=== PATIENT | male | born 1955 | race Caucasian/White ===

== ENCOUNTER 2023-04-21 19:15 | Inpatient (IN) | payer MEDICARE, MEDICAID ==
[~2023-04-21] VITALS: Ht 177.8 cm; Wt 92.7 kg
[2023-04-21] MEDS ORDERED: LIDOCAINE 2%/EPI 1:200,000/PF 10 ML VIAL SQ ONE (21:15)
[2023-04-21] MEDS ORDERED: LIDOCAINE 2%/EPI 1:200,000/PF 10 ML VIAL ONE (21:15)
[2023-04-21] MEDS ORDERED: LIDOCAINE 2%/EPI 1:200,000/PF 10 ML VIAL PERC ONE (21:15)
[2023-04-21] MEDS ORDERED: DOCU-352 PO (21:42)
[2023-04-21] MEDS ORDERED: ASPI-1450 PO (21:42)
[2023-04-21] MEDS ORDERED: GABA-1201 PO (21:42)
[2023-04-21] MEDS ORDERED: TRAZ-252 PO (21:42)
[2023-04-21] MEDS ORDERED: HYDR25TA2 PO (21:42)
[2023-04-21] MEDS ORDERED: HYDR25TA84 PO (21:42)
[2023-04-21] MEDS ORDERED: SUVO10TA PO (21:42)
[2023-04-21] MEDS ORDERED: DULO-114 PO (21:42)
[2023-04-21] MEDS ORDERED: CYCL-448 PO (21:42)
[2023-04-21] MEDS ORDERED: CLON1PAT12 TD (21:42)
[2023-04-21] MEDS ORDERED: AMLO-258 PO (21:42)
[2023-04-21] MEDS ORDERED: METO50 PO (21:42)
[2023-04-21] MEDS ORDERED: ACET-2080 PO (21:42)
[2023-04-21] MEDS ORDERED: PRAZ5 PO (21:42)
[2023-04-21] MEDS ORDERED: ATOR40TA28 PO (21:42)
[2023-04-21] MEDS ORDERED: FAMO20 PO (21:42)
[2023-04-21] MEDS ORDERED: LISI-892 PO (21:42)
[2023-04-21] MEDS ORDERED: PERTUSS(ACELL),DIPH,TET VAC/PF 0.5 ML SYRINGE IM. ONE (21:45)
[2023-04-21] MEDS ORDERED: BACITRACIN 28 GM OINTMENT TP ONE (21:45)
[2023-04-21 21:56] LABS: BASOPHILS % (AUTO) 0.4 % (0.0-2.0); EOSINOPHILS % (AUTO) 1.7 % (1.0-6.0); HEMATOCRIT 44.3 % (41-53); HEMOGLOBIN 14.6 g/dL (13.5-17.5); LYMPHOCYTES # (AUTO) 1.7 K/uL (1.0-4.8); MEAN CORPUSCULAR HEMOGLOBIN 28.5 pg (26.0-34.0); MEAN CORPUSCULAR VOLUME 86 fL (80-100); MONOCYTES # (AUTO) 1.1 K/uL (0.1-1.0); MONOCYTES % (AUTO) 8.1 % (2.0-9.0); NEUTROPHILS # (AUTO) 10.9 K/uL (1.8-7.7); NEUTROPHILS % (AUTO) 77.8 % (40.0-70.0); PLATELET COUNT (AUTO) 228 K/uL (150-450); RED BLOOD CELL COUNT(AUTO) 5.12 MIL/uL (4.50-5.90); RED CELL DISTRIBUTION WIDTH 13.6 % (11.5-14.5)
[2023-04-21 21:57] LABS: ANION GAP 12 mmol/L (8-16); CALCIUM, TOTAL 8.9 mg/dL (8.8-10.5); CARBON DIOXIDE 25 mmol/L (22-29); CHLORIDE 94 mmol/L (98-107); CREATININE 0.87 mg/dL (0.60-1.30); GLOMERULAR FILTR. RATE CALC > 60 mL/min (>60); GLUCOSE,RANDOM 78 mg/dL (70-110); POTASSIUM 3.6 mmol/L (3.5-5.1); SODIUM SERUM 131 mmol/L (136-145)
[2023-04-21 22:03] LABS: ALANINE AMINOTRANSFERASE 25 U/L (12-78); ALBUMIN 3.8 g/dL (3.4-5.0); ALKALINE PHOSPHATASE 76 U/L (46-116); ASPARTATE AMINOTRANSFERASE 28 U/L (15-37); BILIRUBIN,TOTAL 0.8 mg/dL (0.1-1.0); TOTAL PROTEIN, SERUM 6.5 g/dL (6.4-8.2)
[2023-04-22 00:22] LABS: APPEARANCE,URINE CLEAR (CLEAR); BILIRUBIN,URINE NEGATIVE (NEGATIVE); GLUCOSE, URINE (UA) NEGATIVE (NEGATIVE); LEUKOCYTE ESTERASE ,URINE NEGATIVE (NEGATIVE); NITRATE,URINE NEGATIVE (NEGATIVE); OCCULT BLOOD,URINE NEGATIVE (NEGATIVE); PROTEIN,URINE NEGATIVE (NEGATIVE); UROBILINOGEN,URINE <=1.0 mg/dL (<=1.0)
[2023-04-22 00:27] LABS: AMPHET/METH SCREEN,URINE NEGATIVE (NEGATIVE); BARBITURATE SCREEN, URINE NEGATIVE (NEGATIVE); BENZODIAZEPINES SCREEN,URINE NEGATIVE (NEGATIVE); CANNABINOID SCREEN,URINE POSITIVE (NEGATIVE); COCAINE SCREEN,URINE NEGATIVE (NEGATIVE); METHADONE SCREEN, URINE NEGATIVE (NEGATIVE); OPIATE SCREEN,URINE POSITIVE (NEGATIVE); PHENCYCLIDINE SCREEN,URINE NEGATIVE (NEGATIVE)
[2023-04-22 00:41] LABS: COVID AG,FIA SOURCE NASAL SWAB
[2023-04-22 00:57] LABS: BACTERIA,URINE None Seen /HPF (None Seen); RBC,URINE None Seen /HPF (0-2); SQUAMOUS EPITHELIAL CELL,UR Rare /LPF (None Seen); WBC,URINE None Seen /HPF (0-5)
[2023-04-22] MEDS: ZOLPIDEM TARTRATE 10 MG TABLET PO PRN ×2 (01:09→18:35)
[2023-04-22] MEDS: DOCUSATE SODIUM 250 MG CAPSULE PO SCH (09:45)
[2023-04-22] MEDS: AmLODIPine BESYLATE 10 MG TABLET PO SCH (09:49)
[2023-04-22] MEDS: ASPIRIN 81 MG CHEWABLE TABLET PO SCH (09:49)
[2023-04-22] MEDS: METOPROLOL TARTRATE 50 MG TABLET PO SCH (09:50)
[2023-04-22] MEDS: HydrALAZINE HCL 25 MG TABLET PO SCH ×2 (09:50→20:59)
[2023-04-22] MEDS: LISINOPRIL 5 MG TABLET PO SCH (10:27)
[2023-04-22] MEDS: HYDROCHLOROTHIAZIDE 25 MG TABLET PO SCH (10:27)
[2023-04-22] MEDS ORDERED: TAMS-13 PO (11:39)
[2023-04-22] MEDS ORDERED: HYDR25TA82 PO (11:39)
[2023-04-22] MEDS ORDERED: METO-391 PO (11:39)
[2023-04-22] MEDS: LORazepam 2 MG TABLET PO PRN (12:29)
[2023-04-22] MEDS: HALOPERIDOL 5 MG TABLET PO PRN ×2 (12:29→18:35)
[2023-04-22] MEDS: GABAPENTIN 400 MG CAPSULE PO SCH ×2 (17:00→20:59)
[2023-04-22 19:06] LABS: GLUCOMETER DEV NAME(LOC) ER.6
[2023-04-22] MEDS: ATORVASTATIN CALCIUM 40 MG TABLET PO SCH (20:59)
[2023-04-22] MEDS: PRAZOSIN HCL 5 MG CAPSULE PO SCH (20:59)
[2023-04-22] MEDS: FAMOTIDINE 20 MG TABLET PO SCH (20:59)
[2023-04-22] MEDS ORDERED: MAGNESIUM HYDROXIDE SUSPENSION 30 ML UDCUP PO PRN (23:30)
[2023-04-22] MEDS ORDERED: ONDANSETRON HCL 4 MG TABLET PO PRN (23:30)
[2023-04-22] MEDS ORDERED: ACETAMINOPHEN 325 MG TABLET PO PRN (23:30)
[2023-04-22] MEDS ORDERED: OMEPRAZOLE 20 MG CAPSULE PO PRN (23:30)
[2023-04-22] MEDS ORDERED: ALBUTEROL SULFATE HFA 90 MCG/PUFF 8 GM INHALER IH PRN (23:30)
[2023-04-22] MEDS ORDERED: LOPERAMIDE HCL 2 MG CAPSULE PO PRN (23:30)
[2023-04-22] MEDS ORDERED: BENZOCAINE/MENTHOL LOZENGE PO PRN (23:30)
[2023-04-22] MEDS ORDERED: PETROLATUM,WHITE 28 GM JELLY TP PRN (23:30)
[2023-04-22] MEDS ORDERED: DOCUSATE SODIUM 100 MG CAPSULE PO PRN (23:30)
[2023-04-23 01:00] VITALS: BP 131/71; PULSE 64; RESP 18; TEMP 97.8; O2SAT 98
[2023-04-23] MEDS ORDERED: NICOTINE 21 MG/24 HOUR PATCH TD PRN (06:45)
[2023-04-23] MEDS: BACITRACIN 28 GM OINTMENT TP PRN (09:15)
[2023-04-23] MEDS: LISINOPRIL 5 MG TABLET PO SCH (09:15)
[2023-04-23] MEDS: HYDROCHLOROTHIAZIDE 25 MG TABLET PO SCH (09:16)
[2023-04-23] MEDS: METOPROLOL TARTRATE 50 MG TABLET PO SCH (09:16)
[2023-04-23] MEDS: HydrALAZINE HCL 25 MG TABLET PO SCH ×2 (09:16→17:34)
[2023-04-23] MEDS: DOCUSATE SODIUM 250 MG CAPSULE PO SCH (09:18)
[2023-04-23] MEDS: ASPIRIN 81 MG CHEWABLE TABLET PO SCH (09:18)
[2023-04-23] MEDS: AmLODIPine BESYLATE 10 MG TABLET PO SCH (09:18)
[2023-04-23] MEDS: GABAPENTIN 400 MG CAPSULE PO SCH ×3 (09:19→17:34)
[2023-04-23 09:26] VITALS: BP 123/56; PULSE 65; RESP 18; TEMP 97.5; O2SAT 98
[2023-04-23 16:50] VITALS: BP 123/56; PULSE 85; RESP 18; TEMP 97.5; O2SAT 98
[2023-04-23] MEDS: FAMOTIDINE 20 MG TABLET PO SCH (21:24)
[2023-04-23] MEDS: ATORVASTATIN CALCIUM 40 MG TABLET PO SCH (21:24)
[2023-04-23] MEDS: PRAZOSIN HCL 5 MG CAPSULE PO SCH (21:24)
[2023-04-23] MEDS: ZOLPIDEM TARTRATE 10 MG TABLET PO PRN (21:24)
[2023-04-24 05:31] VITALS: BP 139/63; PULSE 66; RESP 20; TEMP 96.4
[2023-04-24 08:30] VITALS: BP 163/83; PULSE 93; RESP 18; TEMP 97.5; O2SAT 98
[2023-04-24] MEDS: AmLODIPine BESYLATE 10 MG TABLET PO SCH (08:59)
[2023-04-24] MEDS: HydrALAZINE HCL 25 MG TABLET PO SCH ×2 (08:59→18:07)
[2023-04-24] MEDS: METOPROLOL TARTRATE 50 MG TABLET PO SCH (08:59)
[2023-04-24] MEDS: LISINOPRIL 5 MG TABLET PO SCH (09:00)
[2023-04-24] MEDS: HYDROCHLOROTHIAZIDE 25 MG TABLET PO SCH (09:00)
[2023-04-24] MEDS: DOCUSATE SODIUM 250 MG CAPSULE PO SCH (09:00)
[2023-04-24] MEDS: ASPIRIN 81 MG CHEWABLE TABLET PO SCH (09:00)
[2023-04-24] MEDS: GABAPENTIN 400 MG CAPSULE PO SCH ×3 (09:00→18:06)
[2023-04-24] MEDS: MAG HYDROX/AL HYDROX/SIMETH ES 30 ML SUSPENSION UDCUP PO PRN (15:45)
[2023-04-24 16:00] VITALS: BP 160/65; PULSE 64; RESP 19; TEMP 98.2
[2023-04-24] MEDS: DIVALPROEX SODIUM 250 MG DR TABLET PO SCH (18:06)
[2023-04-24] MEDS: PRAZOSIN HCL 5 MG CAPSULE PO SCH (21:15)
[2023-04-24] MEDS: ATORVASTATIN CALCIUM 40 MG TABLET PO SCH (21:16)
[2023-04-24] MEDS: FAMOTIDINE 20 MG TABLET PO SCH (21:16)
[2023-04-24] MEDS: ZOLPIDEM TARTRATE 10 MG TABLET PO PRN (21:16)
[2023-04-25 02:23] VITALS: BP 133/81; PULSE 92; RESP 20; TEMP 97.1
[2023-04-25] MEDS: DOCUSATE SODIUM 250 MG CAPSULE PO SCH (08:30)
[2023-04-25] MEDS: ASPIRIN 81 MG CHEWABLE TABLET PO SCH (08:30)
[2023-04-25] MEDS: GABAPENTIN 400 MG CAPSULE PO SCH ×3 (08:30→16:31)
[2023-04-25] MEDS: HydrALAZINE HCL 25 MG TABLET PO SCH ×2 (08:31→16:32)
[2023-04-25] MEDS: AmLODIPine BESYLATE 10 MG TABLET PO SCH (08:31)
[2023-04-25] MEDS: METOPROLOL TARTRATE 50 MG TABLET PO SCH (08:32)
[2023-04-25] MEDS: LISINOPRIL 5 MG TABLET PO SCH (08:32)
[2023-04-25] MEDS: DIVALPROEX SODIUM 250 MG DR TABLET PO SCH ×2 (08:32→16:31)
[2023-04-25] MEDS: HYDROCHLOROTHIAZIDE 25 MG TABLET PO SCH (09:01)
[2023-04-25 09:29] VITALS: BP 164/71; PULSE 66; RESP 18; TEMP 97.5; O2SAT 98
[2023-04-25 16:10] VITALS: BP 165/90; PULSE 65; RESP 18; TEMP 98.4; O2SAT 99
[2023-04-25] MEDS: LORazepam 2 MG TABLET PO PRN (16:32)
[2023-04-25] MEDS: FAMOTIDINE 20 MG TABLET PO SCH (21:04)
[2023-04-25] MEDS: ATORVASTATIN CALCIUM 40 MG TABLET PO SCH (21:05)
[2023-04-25] MEDS: PRAZOSIN HCL 5 MG CAPSULE PO SCH (21:05)
[2023-04-25 22:00] VITALS: BP 155/83; PULSE 64; RESP 18; TEMP 97.5; O2SAT 96
[2023-04-25] MEDS: ZOLPIDEM TARTRATE 10 MG TABLET PO PRN (23:42)
[2023-04-26 08:52] VITALS: BP 154/78; PULSE 86; RESP 18; TEMP 97.6; O2SAT 98
[2023-04-26] MEDS: BACITRACIN 28 GM OINTMENT TP PRN (08:53)
[2023-04-26] MEDS: HydrALAZINE HCL 25 MG TABLET PO SCH ×2 (08:54→17:36)
[2023-04-26] MEDS: HYDROCHLOROTHIAZIDE 25 MG TABLET PO SCH (08:55)
[2023-04-26] MEDS: METOPROLOL TARTRATE 50 MG TABLET PO SCH (08:55)
[2023-04-26] MEDS: LISINOPRIL 5 MG TABLET PO SCH (08:55)
[2023-04-26] MEDS: DIVALPROEX SODIUM 250 MG DR TABLET PO SCH ×2 (08:55→17:36)
[2023-04-26] MEDS: DOCUSATE SODIUM 250 MG CAPSULE PO SCH (08:57)
[2023-04-26] MEDS: AmLODIPine BESYLATE 10 MG TABLET PO SCH (08:57)
[2023-04-26] MEDS: GABAPENTIN 400 MG CAPSULE PO SCH ×3 (08:58→17:36)
[2023-04-26] MEDS: ASPIRIN 81 MG CHEWABLE TABLET PO SCH (08:58)
[2023-04-26] MEDS: LORazepam 2 MG TABLET PO PRN (14:52)
[2023-04-26 20:04] VITALS: BP 132/82; PULSE 82; RESP 18; TEMP 98.1; O2SAT 98
[2023-04-26] MEDS: PRAZOSIN HCL 5 MG CAPSULE PO SCH (20:42)
[2023-04-26] MEDS: FAMOTIDINE 20 MG TABLET PO SCH (20:42)
[2023-04-26] MEDS: ATORVASTATIN CALCIUM 40 MG TABLET PO SCH (20:42)
[2023-04-26] MEDS: ZOLPIDEM TARTRATE 10 MG TABLET PO PRN (23:09)
[2023-04-27 08:06] VITALS: BP 155/76; PULSE 81; RESP 18; TEMP 97.9; O2SAT 98
[2023-04-27] MEDS: ASPIRIN 81 MG CHEWABLE TABLET PO SCH (09:32)
[2023-04-27] MEDS: DOCUSATE SODIUM 250 MG CAPSULE PO SCH (09:32)
[2023-04-27] MEDS: AmLODIPine BESYLATE 10 MG TABLET PO SCH (09:32)
[2023-04-27] MEDS: HYDROCHLOROTHIAZIDE 25 MG TABLET PO SCH (09:32)
[2023-04-27] MEDS: GABAPENTIN 400 MG CAPSULE PO SCH ×3 (09:32→17:31)
[2023-04-27] MEDS: METOPROLOL TARTRATE 50 MG TABLET PO SCH (09:33)
[2023-04-27] MEDS: LISINOPRIL 5 MG TABLET PO SCH (09:33)
[2023-04-27] MEDS: DIVALPROEX SODIUM 250 MG DR TABLET PO SCH ×2 (09:33→17:31)
[2023-04-27] MEDS: HydrALAZINE HCL 25 MG TABLET PO SCH ×2 (09:34→17:31)
[2023-04-27] MEDS: LORazepam 2 MG TABLET PO PRN (11:34)
[2023-04-27] MEDS: ATORVASTATIN CALCIUM 40 MG TABLET PO SCH (20:44)
[2023-04-27] MEDS: PRAZOSIN HCL 5 MG CAPSULE PO SCH (20:44)
[2023-04-27] MEDS: FAMOTIDINE 20 MG TABLET PO SCH (20:44)
[2023-04-27] MEDS: ZOLPIDEM TARTRATE 10 MG TABLET PO PRN (21:12)
[2023-04-27 21:30] VITALS: PULSE 62; RESP 18; TEMP 98.2; O2SAT 99
[2023-04-28] MEDS: LORazepam 2 MG TABLET PO PRN (00:12)
[2023-04-28] MEDS: DIVALPROEX SODIUM 250 MG DR TABLET PO SCH ×2 (08:48→16:35)
[2023-04-28] MEDS: DOCUSATE SODIUM 250 MG CAPSULE PO SCH (08:48)
[2023-04-28] MEDS: AmLODIPine BESYLATE 10 MG TABLET PO SCH (08:48)
[2023-04-28] MEDS: GABAPENTIN 400 MG CAPSULE PO SCH ×3 (08:48→16:35)
[2023-04-28] MEDS: HYDROCHLOROTHIAZIDE 25 MG TABLET PO SCH (08:48)
[2023-04-28] MEDS: ASPIRIN 81 MG CHEWABLE TABLET PO SCH (08:49)
[2023-04-28] MEDS: LISINOPRIL 5 MG TABLET PO SCH (08:49)
[2023-04-28] MEDS: METOPROLOL TARTRATE 50 MG TABLET PO SCH (08:50)
[2023-04-28] MEDS: HydrALAZINE HCL 25 MG TABLET PO SCH ×2 (08:51→16:35)
[2023-04-28 09:11] VITALS: BP 139/76; PULSE 71; RESP 18; TEMP 97.6; O2SAT 99
[2023-04-28 14:02] VITALS: BP 149/76; PULSE 89; RESP 18; TEMP 97.9; O2SAT 99
[2023-04-28] MEDS: IBUPROFEN 600 MG TABLET PO PRN (14:02)
[2023-04-28 16:30] VITALS: BP 205/96; PULSE 64; RESP 18; TEMP 97.9; O2SAT 97
[2023-04-28 17:30] VITALS: BP 189/89; RESP 17; O2SAT 98
[2023-04-28 18:30] VITALS: BP 201/94; RESP 18; O2SAT 99
[2023-04-28] MEDS ORDERED: CloNIDine HCL 0.1 MG TABLET PO PRN (19:00)
[2023-04-28] MEDS ORDERED: DiphenhydrAMINE HCL 50 MG/ML VIAL IM ONE (20:45)
[2023-04-28] MEDS: ATORVASTATIN CALCIUM 40 MG TABLET PO SCH (20:46)
[2023-04-28] MEDS: PRAZOSIN HCL 5 MG CAPSULE PO SCH (20:46)
[2023-04-28] MEDS: FAMOTIDINE 20 MG TABLET PO SCH (20:47)
[2023-04-28 21:13] VITALS: BP 131/78; PULSE 72; RESP 18; TEMP 97.3; O2SAT 98
[2023-04-29] MEDS: LORazepam 2 MG TABLET PO PRN (03:20)
[2023-04-29 07:14] VITALS: BP 129/66; PULSE 64; RESP 18; TEMP 97.5; O2SAT 98
[2023-04-29 08:22] VITALS: BP 162/56; PULSE 64; RESP 17; TEMP 97; O2SAT 98
[2023-04-29] MEDS: GABAPENTIN 400 MG CAPSULE PO SCH ×3 (09:12→16:56)
[2023-04-29] MEDS: AmLODIPine BESYLATE 10 MG TABLET PO SCH (09:12)
[2023-04-29] MEDS: DOCUSATE SODIUM 250 MG CAPSULE PO SCH (09:12)
[2023-04-29] MEDS: DIVALPROEX SODIUM 250 MG DR TABLET PO SCH ×2 (09:13→16:56)
[2023-04-29] MEDS: ASPIRIN 81 MG CHEWABLE TABLET PO SCH (09:13)
[2023-04-29] MEDS: LISINOPRIL 5 MG TABLET PO SCH (09:14)
[2023-04-29] MEDS: HYDROCHLOROTHIAZIDE 25 MG TABLET PO SCH (09:14)
[2023-04-29] MEDS: HydrALAZINE HCL 25 MG TABLET PO SCH ×2 (09:15→16:57)
[2023-04-29] MEDS: METOPROLOL TARTRATE 50 MG TABLET PO SCH (09:16)
[2023-04-29] MEDS: FAMOTIDINE 20 MG TABLET PO SCH (20:49)
[2023-04-29] MEDS: ATORVASTATIN CALCIUM 40 MG TABLET PO SCH (20:50)
[2023-04-29] MEDS: PRAZOSIN HCL 5 MG CAPSULE PO SCH (20:50)
[2023-04-29 20:56] VITALS: BP 148/78; PULSE 66; RESP 18; TEMP 98.7; O2SAT 99
[2023-04-29] MEDS: ZOLPIDEM TARTRATE 10 MG TABLET PO PRN (21:59)
[2023-04-30 08:23] VITALS: BP 136/80; PULSE 62; RESP 18; TEMP 97.8; O2SAT 97
[2023-04-30] MEDS: GABAPENTIN 400 MG CAPSULE PO SCH ×3 (08:31→16:48)
[2023-04-30] MEDS: AmLODIPine BESYLATE 10 MG TABLET PO SCH (08:32)
[2023-04-30] MEDS: ASPIRIN 81 MG CHEWABLE TABLET PO SCH (08:32)
[2023-04-30] MEDS: DOCUSATE SODIUM 250 MG CAPSULE PO SCH (08:33)
[2023-04-30] MEDS: HydrALAZINE HCL 25 MG TABLET PO SCH ×2 (08:44→16:49)
[2023-04-30] MEDS: LISINOPRIL 5 MG TABLET PO SCH (08:44)
[2023-04-30] MEDS: DIVALPROEX SODIUM 250 MG DR TABLET PO SCH ×2 (08:44→16:50)
[2023-04-30] MEDS: HYDROCHLOROTHIAZIDE 25 MG TABLET PO SCH (08:45)
[2023-04-30] MEDS: METOPROLOL TARTRATE 50 MG TABLET PO SCH (08:45)
[2023-04-30] MEDS: LORazepam 2 MG TABLET PO PRN (19:28)
[2023-04-30] MEDS: FAMOTIDINE 20 MG TABLET PO SCH (20:45)
[2023-04-30] MEDS: ATORVASTATIN CALCIUM 40 MG TABLET PO SCH (20:45)
[2023-04-30] MEDS: PRAZOSIN HCL 5 MG CAPSULE PO SCH (20:46)
[2023-04-30] MEDS: ZOLPIDEM TARTRATE 10 MG TABLET PO PRN (21:04)
[2023-04-30 23:08] VITALS: BP 158/90; PULSE 62; RESP 18; TEMP 97.5; O2SAT 100
[2023-05-01 08:20] VITALS: BP 143/71; PULSE 70; RESP 18; TEMP 97.3; O2SAT 97
[2023-05-01] MEDS: METOPROLOL TARTRATE 50 MG TABLET PO SCH (09:39)
[2023-05-01] MEDS: GABAPENTIN 400 MG CAPSULE PO SCH ×3 (09:39→17:43)
[2023-05-01] MEDS: DIVALPROEX SODIUM 250 MG DR TABLET PO SCH ×2 (09:39→17:43)
[2023-05-01] MEDS: DOCUSATE SODIUM 250 MG CAPSULE PO SCH (09:39)
[2023-05-01] MEDS: HYDROCHLOROTHIAZIDE 25 MG TABLET PO SCH (09:39)
[2023-05-01] MEDS: LISINOPRIL 5 MG TABLET PO SCH (09:39)
[2023-05-01] MEDS: AmLODIPine BESYLATE 10 MG TABLET PO SCH (09:39)
[2023-05-01] MEDS: HydrALAZINE HCL 25 MG TABLET PO SCH ×2 (09:41→17:43)
[2023-05-01] MEDS: ASPIRIN 81 MG CHEWABLE TABLET PO SCH (09:41)
[2023-05-01] MEDS: LORazepam 2 MG TABLET PO PRN (12:44)
[2023-05-01 20:26] VITALS: BP 134/78; PULSE 82; RESP 18; TEMP 98.1; O2SAT 98
[2023-05-01] MEDS: PRAZOSIN HCL 5 MG CAPSULE PO SCH (20:40)
[2023-05-01] MEDS: FAMOTIDINE 20 MG TABLET PO SCH (20:40)
[2023-05-01] MEDS: ATORVASTATIN CALCIUM 40 MG TABLET PO SCH (20:40)
[2023-05-01] MEDS: ZOLPIDEM TARTRATE 10 MG TABLET PO PRN (21:21)
[2023-05-02] MEDS: DIVALPROEX SODIUM 250 MG DR TABLET PO SCH ×2 (08:42→16:25)
[2023-05-02] MEDS: HydrALAZINE HCL 25 MG TABLET PO SCH ×2 (08:42→16:25)
[2023-05-02] MEDS: GABAPENTIN 400 MG CAPSULE PO SCH ×3 (08:43→16:25)
[2023-05-02] MEDS: DOCUSATE SODIUM 250 MG CAPSULE PO SCH (08:44)
[2023-05-02] MEDS: LISINOPRIL 5 MG TABLET PO SCH (08:44)
[2023-05-02] MEDS: METOPROLOL TARTRATE 50 MG TABLET PO SCH (08:44)
[2023-05-02] MEDS: ASPIRIN 81 MG CHEWABLE TABLET PO SCH (08:44)
[2023-05-02] MEDS: AmLODIPine BESYLATE 10 MG TABLET PO SCH (08:44)
[2023-05-02] MEDS: HYDROCHLOROTHIAZIDE 25 MG TABLET PO SCH (08:44)
[2023-05-02 09:05] VITALS: BP 147/83; PULSE 73; RESP 18; TEMP 98.2; O2SAT 99
[2023-05-02] MEDS: MAG HYDROX/AL HYDROX/SIMETH ES 30 ML SUSPENSION UDCUP PO PRN (20:02)
[2023-05-02] MEDS: FAMOTIDINE 20 MG TABLET PO SCH (21:03)
[2023-05-02] MEDS: ATORVASTATIN CALCIUM 40 MG TABLET PO SCH (21:03)
[2023-05-02] MEDS: PRAZOSIN HCL 5 MG CAPSULE PO SCH (21:03)
[2023-05-02] MEDS: ZOLPIDEM TARTRATE 10 MG TABLET PO PRN (21:03)
[2023-05-02 21:45] VITALS: BP 129/62; PULSE 60; RESP 18; TEMP 97.5; O2SAT 100
[2023-05-03 09:00] VITALS: BP 160/72; PULSE 68; RESP 18; TEMP 97.9; O2SAT 99
[2023-05-03] MEDS: DIVALPROEX SODIUM 250 MG DR TABLET PO SCH ×2 (09:16→16:32)
[2023-05-03] MEDS: GABAPENTIN 400 MG CAPSULE PO SCH ×3 (09:16→16:32)
[2023-05-03] MEDS: ASPIRIN 81 MG CHEWABLE TABLET PO SCH (09:17)
[2023-05-03] MEDS: DOCUSATE SODIUM 250 MG CAPSULE PO SCH (09:18)
[2023-05-03] MEDS: AmLODIPine BESYLATE 10 MG TABLET PO SCH (09:30)
[2023-05-03] MEDS: HYDROCHLOROTHIAZIDE 25 MG TABLET PO SCH (09:30)
[2023-05-03] MEDS: METOPROLOL TARTRATE 50 MG TABLET PO SCH (09:30)
[2023-05-03] MEDS: HydrALAZINE HCL 25 MG TABLET PO SCH ×2 (09:30→16:32)
[2023-05-03] MEDS: LISINOPRIL 5 MG TABLET PO SCH (09:30)
[2023-05-03] MEDS: LORazepam 2 MG TABLET PO PRN (18:25)
[2023-05-03] MEDS: FAMOTIDINE 20 MG TABLET PO SCH (20:15)
[2023-05-03] MEDS: ATORVASTATIN CALCIUM 40 MG TABLET PO SCH (20:20)
[2023-05-03] MEDS: PRAZOSIN HCL 5 MG CAPSULE PO SCH (20:20)
[2023-05-03 20:28] VITALS: BP 133/76; PULSE 77; TEMP 97.8
[2023-05-03] MEDS: ZOLPIDEM TARTRATE 10 MG TABLET PO PRN (20:55)
[2023-05-04] VITALS (11 sets, daily range): BP systolic 127–154; BP diastolic 61–88; PULSE 53–78; RESP 17–19; TEMP 97.8–98.4; O2SAT 96–99
[2023-05-04] MEDS: DOCUSATE SODIUM 250 MG CAPSULE PO SCH (08:58)
[2023-05-04] MEDS: ASPIRIN 81 MG CHEWABLE TABLET PO SCH (08:58)
[2023-05-04] MEDS: GABAPENTIN 400 MG CAPSULE PO SCH ×3 (08:58→16:13)
[2023-05-04] MEDS: AmLODIPine BESYLATE 10 MG TABLET PO SCH (08:58)
[2023-05-04] MEDS: METOPROLOL TARTRATE 50 MG TABLET PO SCH (08:59)
[2023-05-04] MEDS: HydrALAZINE HCL 25 MG TABLET PO SCH ×2 (08:59→16:13)
[2023-05-04] MEDS: DIVALPROEX SODIUM 250 MG DR TABLET PO SCH ×2 (08:59→16:13)
[2023-05-04] MEDS: HYDROCHLOROTHIAZIDE 25 MG TABLET PO SCH (09:00)
[2023-05-04] MEDS: LISINOPRIL 5 MG TABLET PO SCH (09:00)
[2023-05-04] MEDS: LORazepam 2 MG TABLET PO PRN (16:13)
[2023-05-04] MEDS: PRAZOSIN HCL 5 MG CAPSULE PO SCH (20:55)
[2023-05-04] MEDS: ZOLPIDEM TARTRATE 10 MG TABLET PO PRN (20:55)
[2023-05-04] MEDS: FAMOTIDINE 20 MG TABLET PO SCH (20:55)
[2023-05-04] MEDS: ATORVASTATIN CALCIUM 40 MG TABLET PO SCH (20:55)
[2023-05-05] VITALS (7 sets, daily range): BP systolic 135–158; BP diastolic 65–83; PULSE 61–75; RESP 17–19; TEMP 97.3–98.6; O2SAT 97–99
[2023-05-05] MEDS: IBUPROFEN 600 MG TABLET PO PRN ×2 (00:50→09:14)
[2023-05-05] MEDS: AmLODIPine BESYLATE 10 MG TABLET PO SCH (08:42)
[2023-05-05] MEDS: DIVALPROEX SODIUM 250 MG DR TABLET PO SCH ×2 (08:42→17:19)
[2023-05-05] MEDS: HydrALAZINE HCL 25 MG TABLET PO SCH ×2 (08:42→17:19)
[2023-05-05] MEDS: DOCUSATE SODIUM 250 MG CAPSULE PO SCH (08:42)
[2023-05-05] MEDS: HYDROCHLOROTHIAZIDE 25 MG TABLET PO SCH (08:42)
[2023-05-05] MEDS: GABAPENTIN 400 MG CAPSULE PO SCH ×3 (08:42→17:19)
[2023-05-05] MEDS: METOPROLOL TARTRATE 50 MG TABLET PO SCH (08:42)
[2023-05-05] MEDS: ASPIRIN 81 MG CHEWABLE TABLET PO SCH (08:42)
[2023-05-05] MEDS: LISINOPRIL 5 MG TABLET PO SCH (08:43)
[2023-05-05] MEDS: ATORVASTATIN CALCIUM 40 MG TABLET PO SCH (20:50)
[2023-05-05] MEDS: FAMOTIDINE 20 MG TABLET PO SCH (20:50)
[2023-05-05] MEDS: PRAZOSIN HCL 5 MG CAPSULE PO SCH (20:50)
[2023-05-06] MEDS: ZOLPIDEM TARTRATE 10 MG TABLET PO PRN (03:00)
[2023-05-06 08:37] VITALS: BP 184/85; PULSE 63; RESP 18; TEMP 97.5; O2SAT 97
[2023-05-06] MEDS: DOCUSATE SODIUM 250 MG CAPSULE PO SCH (10:47)
[2023-05-06] MEDS: AmLODIPine BESYLATE 10 MG TABLET PO SCH (10:47)
[2023-05-06] MEDS: HYDROCHLOROTHIAZIDE 25 MG TABLET PO SCH (10:47)
[2023-05-06] MEDS: ASPIRIN 81 MG CHEWABLE TABLET PO SCH (10:48)
[2023-05-06] MEDS: DIVALPROEX SODIUM 250 MG DR TABLET PO SCH ×2 (10:48→18:13)
[2023-05-06] MEDS: METOPROLOL TARTRATE 50 MG TABLET PO SCH (10:49)
[2023-05-06] MEDS: LISINOPRIL 5 MG TABLET PO SCH (10:49)
[2023-05-06] MEDS: GABAPENTIN 400 MG CAPSULE PO SCH ×3 (10:50→18:14)
[2023-05-06] MEDS: HydrALAZINE HCL 25 MG TABLET PO SCH ×2 (10:52→18:13)
[2023-05-06] MEDS: LORazepam 2 MG TABLET PO PRN (15:25)
[2023-05-06 20:35] VITALS: BP 139/84; PULSE 75; RESP 18; TEMP 98; O2SAT 98
[2023-05-06 20:43] VITALS: BP 141/86; PULSE 66; RESP 18; TEMP 97.9; O2SAT 98
[2023-05-06] MEDS: PRAZOSIN HCL 5 MG CAPSULE PO SCH (20:58)
[2023-05-06] MEDS: ATORVASTATIN CALCIUM 40 MG TABLET PO SCH (20:58)
[2023-05-06] MEDS: FAMOTIDINE 20 MG TABLET PO SCH (20:59)
[2023-05-07 08:00] VITALS: BP 143/72; PULSE 64; RESP 18; TEMP 97.2; O2SAT 99
[2023-05-07] MEDS: DOCUSATE SODIUM 250 MG CAPSULE PO SCH (08:37)
[2023-05-07] MEDS: METOPROLOL TARTRATE 50 MG TABLET PO SCH (08:37)
[2023-05-07] MEDS: LISINOPRIL 5 MG TABLET PO SCH (08:37)
[2023-05-07] MEDS: HYDROCHLOROTHIAZIDE 25 MG TABLET PO SCH (08:37)
[2023-05-07] MEDS: LORazepam 2 MG TABLET PO PRN ×2 (08:37→18:31)
[2023-05-07] MEDS: DIVALPROEX SODIUM 250 MG DR TABLET PO SCH ×2 (08:37→17:36)
[2023-05-07] MEDS: HydrALAZINE HCL 25 MG TABLET PO SCH ×2 (08:37→17:36)
[2023-05-07] MEDS: AmLODIPine BESYLATE 10 MG TABLET PO SCH (08:37)
[2023-05-07] MEDS: ASPIRIN 81 MG CHEWABLE TABLET PO SCH (08:38)
[2023-05-07] MEDS: GABAPENTIN 400 MG CAPSULE PO SCH ×3 (08:38→17:35)
[2023-05-07 20:29] VITALS: BP 162/60; PULSE 61; RESP 18; TEMP 97.5; O2SAT 98
[2023-05-07] MEDS: PRAZOSIN HCL 5 MG CAPSULE PO SCH (20:44)
[2023-05-07] MEDS: FAMOTIDINE 20 MG TABLET PO SCH (20:45)
[2023-05-07] MEDS: ATORVASTATIN CALCIUM 40 MG TABLET PO SCH (20:45)
[2023-05-07] MEDS: ZOLPIDEM TARTRATE 10 MG TABLET PO PRN (21:03)
[2023-05-08 08:00] VITALS: BP 136/84; PULSE 88; RESP 20; TEMP 98.2; O2SAT 98
[2023-05-08] MEDS: DOCUSATE SODIUM 250 MG CAPSULE PO SCH (08:14)
[2023-05-08] MEDS: ASPIRIN 81 MG CHEWABLE TABLET PO SCH (08:14)
[2023-05-08] MEDS: LISINOPRIL 5 MG TABLET PO SCH (08:14)
[2023-05-08] MEDS: AmLODIPine BESYLATE 10 MG TABLET PO SCH (08:14)
[2023-05-08] MEDS: GABAPENTIN 400 MG CAPSULE PO SCH ×3 (08:14→16:37)
[2023-05-08] MEDS: HydrALAZINE HCL 25 MG TABLET PO SCH ×2 (08:15→16:37)
[2023-05-08] MEDS: HYDROCHLOROTHIAZIDE 25 MG TABLET PO SCH (08:15)
[2023-05-08] MEDS: METOPROLOL TARTRATE 50 MG TABLET PO SCH (08:15)
[2023-05-08] MEDS: DIVALPROEX SODIUM 250 MG DR TABLET PO SCH ×2 (08:15→16:37)
[2023-05-08] MEDS: LORazepam 2 MG TABLET PO PRN (09:38)
[2023-05-08] MEDS: PRAZOSIN HCL 5 MG CAPSULE PO SCH (21:09)
[2023-05-08] MEDS: FAMOTIDINE 20 MG TABLET PO SCH (21:09)
[2023-05-08] MEDS: ATORVASTATIN CALCIUM 40 MG TABLET PO SCH (21:10)
[2023-05-09 08:19] VITALS: BP 129/61; PULSE 61; RESP 18; TEMP 97.1; O2SAT 97
[2023-05-09] MEDS: METOPROLOL TARTRATE 50 MG TABLET PO SCH (09:33)
[2023-05-09] MEDS: DIVALPROEX SODIUM 250 MG DR TABLET PO SCH ×2 (09:33→17:35)
[2023-05-09] MEDS: HYDROCHLOROTHIAZIDE 25 MG TABLET PO SCH (09:34)
[2023-05-09] MEDS: HydrALAZINE HCL 25 MG TABLET PO SCH ×2 (09:34→17:35)
[2023-05-09] MEDS: LISINOPRIL 5 MG TABLET PO SCH (09:34)
[2023-05-09] MEDS: AmLODIPine BESYLATE 10 MG TABLET PO SCH (09:37)
[2023-05-09] MEDS: GABAPENTIN 400 MG CAPSULE PO SCH ×3 (09:37→18:19)
[2023-05-09] MEDS: ASPIRIN 81 MG CHEWABLE TABLET PO SCH (09:37)
[2023-05-09] MEDS: DOCUSATE SODIUM 250 MG CAPSULE PO SCH (09:38)
[2023-05-09 21:00] VITALS: BP 132/82; PULSE 62; RESP 18; TEMP 98.1; O2SAT 98
[2023-05-09] MEDS: PRAZOSIN HCL 5 MG CAPSULE PO SCH (21:41)
[2023-05-09] MEDS: FAMOTIDINE 20 MG TABLET PO SCH (21:41)
[2023-05-09] MEDS: ATORVASTATIN CALCIUM 40 MG TABLET PO SCH (21:42)
[2023-05-09] MEDS: ZOLPIDEM TARTRATE 10 MG TABLET PO PRN (21:52)
[2023-05-10 00:06] VITALS: BP 132/76; PULSE 62; RESP 18; TEMP 98.1; O2SAT 97
[2023-05-10 08:30] LABS: BASOPHILS % (AUTO) 0.7 % (0.0-2.0); EOSINOPHILS % (AUTO) 4.8 % (1.0-6.0); HEMATOCRIT 37.3 % (41-53); HEMOGLOBIN 12.8 g/dL (13.5-17.5); LYMPHOCYTES # (AUTO) 1.6 K/uL (1.0-4.8); LYMPHOCYTES % (AUTO) 19.1 % (22.0-44.0); MEAN CORPUSCULAR HEMOGLOBIN 29.3 pg (26.0-34.0); MEAN CORPUSCULAR HGB CONC 34.4 G/dL (31.0-37.0); MEAN CORPUSCULAR VOLUME 85 fL (80-100); MONOCYTES # (AUTO) 1.1 K/uL (0.1-1.0); MONOCYTES % (AUTO) 13.2 % (2.0-9.0); NEUTROPHILS # (AUTO) 5.3 K/uL (1.8-7.7); NEUTROPHILS % (AUTO) 62.2 % (40.0-70.0); PLATELET COUNT (AUTO) 198 K/uL (150-450); RED BLOOD CELL COUNT(AUTO) 4.39 MIL/uL (4.50-5.90); RED CELL DISTRIBUTION WIDTH 13.3 % (11.5-14.5)
[2023-05-10 08:45] LABS: ALANINE AMINOTRANSFERASE 29 U/L (12-78); ALBUMIN 3.4 g/dL (3.4-5.0); ALKALINE PHOSPHATASE 70 U/L (46-116); ANION GAP 7 mmol/L (8-16); ASPARTATE AMINOTRANSFERASE 32 U/L (15-37); BILIRUBIN,TOTAL 0.5 mg/dL (0.1-1.0); CALCIUM, TOTAL 8.4 mg/dL (8.8-10.5); CARBON DIOXIDE 30 mmol/L (22-29); CHLORIDE 90 mmol/L (98-107); CREATININE 0.87 mg/dL (0.60-1.30); GLOMERULAR FILTR. RATE CALC > 60 mL/min (>60); GLUCOSE,RANDOM 101 mg/dL (70-110); POTASSIUM 4.3 mmol/L (3.5-5.1); SODIUM SERUM 127 mmol/L (136-145); TOTAL PROTEIN, SERUM 6.4 g/dL (6.4-8.2); VALPROIC ACID 57 mcg/mL (50-100)
[2023-05-10] MEDS: AmLODIPine BESYLATE 10 MG TABLET PO SCH (09:04)
[2023-05-10] MEDS: DOCUSATE SODIUM 250 MG CAPSULE PO SCH (09:04)
[2023-05-10] MEDS: GABAPENTIN 400 MG CAPSULE PO SCH ×3 (09:04→16:56)
[2023-05-10] MEDS: ASPIRIN 81 MG CHEWABLE TABLET PO SCH (09:04)
[2023-05-10] MEDS: LISINOPRIL 5 MG TABLET PO SCH (09:05)
[2023-05-10] MEDS: HydrALAZINE HCL 25 MG TABLET PO SCH ×2 (09:05→16:56)
[2023-05-10] MEDS: HYDROCHLOROTHIAZIDE 25 MG TABLET PO SCH (09:05)
[2023-05-10] MEDS: METOPROLOL TARTRATE 50 MG TABLET PO SCH (09:08)
[2023-05-10] MEDS: DIVALPROEX SODIUM 250 MG DR TABLET PO SCH ×2 (09:08→16:56)
[2023-05-10 10:12] VITALS: BP 140/75; PULSE 60; RESP 19; TEMP 96.7; O2SAT 100
[2023-05-10 17:06] VITALS: BP 155/82; PULSE 57
[2023-05-10 20:26] VITALS: BP 138/75; PULSE 68; RESP 18; TEMP 97.8; O2SAT 98
[2023-05-10] MEDS: ATORVASTATIN CALCIUM 40 MG TABLET PO SCH (21:00)
[2023-05-10] MEDS: FAMOTIDINE 20 MG TABLET PO SCH (21:00)
[2023-05-10] MEDS: ZOLPIDEM TARTRATE 10 MG TABLET PO PRN (21:00)
[2023-05-10] MEDS: PRAZOSIN HCL 5 MG CAPSULE PO SCH (21:00)
[2023-05-11] MEDS: GABAPENTIN 400 MG CAPSULE PO SCH ×3 (08:36→16:46)
[2023-05-11] MEDS: DIVALPROEX SODIUM 250 MG DR TABLET PO SCH ×2 (08:37→16:46)
[2023-05-11] MEDS: DOCUSATE SODIUM 250 MG CAPSULE PO SCH (08:37)
[2023-05-11] MEDS: LISINOPRIL 5 MG TABLET PO SCH (08:38)
[2023-05-11] MEDS: METOPROLOL TARTRATE 50 MG TABLET PO SCH (08:38)
[2023-05-11] MEDS: HYDROCHLOROTHIAZIDE 25 MG TABLET PO SCH (08:38)
[2023-05-11] MEDS: HydrALAZINE HCL 25 MG TABLET PO SCH ×2 (08:39→16:45)
[2023-05-11] MEDS: AmLODIPine BESYLATE 10 MG TABLET PO SCH (08:40)
[2023-05-11] MEDS: ASPIRIN 81 MG CHEWABLE TABLET PO SCH (08:41)
[2023-05-11 09:34] VITALS: BP 150/73; PULSE 81; RESP 17; TEMP 98.1; O2SAT 98
[2023-05-11 17:20] VITALS: BP 159/80
[2023-05-11] MEDS: FAMOTIDINE 20 MG TABLET PO SCH (20:57)
[2023-05-11] MEDS: ATORVASTATIN CALCIUM 40 MG TABLET PO SCH (20:58)
[2023-05-11] MEDS: HALOPERIDOL 5 MG TABLET PO PRN (20:58)
[2023-05-11] MEDS: PRAZOSIN HCL 5 MG CAPSULE PO SCH (20:58)
[2023-05-11 21:37] VITALS: BP 157/65; PULSE 62; RESP 18; TEMP 98.4; O2SAT 98
[2023-05-12] MEDS: ZOLPIDEM TARTRATE 10 MG TABLET PO PRN (00:23)
[2023-05-12] MEDS: ASPIRIN 81 MG CHEWABLE TABLET PO SCH (09:51)
[2023-05-12] MEDS: AmLODIPine BESYLATE 10 MG TABLET PO SCH (09:51)
[2023-05-12] MEDS: METOPROLOL TARTRATE 50 MG TABLET PO SCH (09:51)
[2023-05-12] MEDS: GABAPENTIN 400 MG CAPSULE PO SCH ×3 (09:51→16:41)
[2023-05-12] MEDS: DOCUSATE SODIUM 250 MG CAPSULE PO SCH (09:51)
[2023-05-12] MEDS: LISINOPRIL 5 MG TABLET PO SCH (09:52)
[2023-05-12] MEDS: DIVALPROEX SODIUM 250 MG DR TABLET PO SCH ×2 (09:52→16:40)
[2023-05-12] MEDS: HYDROCHLOROTHIAZIDE 25 MG TABLET PO SCH (09:52)
[2023-05-12] MEDS: HydrALAZINE HCL 25 MG TABLET PO SCH ×2 (09:53→16:39)
[2023-05-12 11:34] VITALS: BP 150/69; PULSE 83; RESP 17; TEMP 98
[2023-05-12] MEDS ORDERED: DIVA-111 PO (14:26)
[2023-05-12] MEDS ORDERED: PRAZ5 PO (14:26)
== END 2023-05-12 18:00 | disposition home or self-care (01) | DRG 885 ==
LOC: EMS 19:16 → 3EX 04-22 20:27
PROVIDERS: ADMIT Psychiatry & Neurology Psychiatry; ATTEND Psychiatry & Neurology Psychiatry
PROC: 3E0234Z Introduction of Serum, Toxoid and Vaccine into Muscle, Percutaneous Approach (ICD-10-PCS; principal; 2023-04-21)
DX: F33.2 Major depressive disorder, recurrent severe without psychotic features (principal); E87.1 Hypo-osmolality and hyponatremia; I69.351 Hemiplegia and hemiparesis following cerebral infarction affecting right dominant side; R45.851 Suicidal ideations; Z20.822 Contact with and (suspected) exposure to COVID-19; F25.9 Schizoaffective disorder, unspecified; F41.9 Anxiety disorder, unspecified; F43.12 Post-traumatic stress disorder, chronic; F12.10 Cannabis abuse, uncomplicated; I10 Essential (primary) hypertension; K59.00 Constipation, unspecified; S11.91XA Laceration without foreign body of unspecified part of neck, initial encounter; F17.210 Nicotine dependence, cigarettes, uncomplicated; Z23 Encounter for immunization; Z88.8 Allergy status to other drugs, medicaments and biological substances; W26.8XXA Contact with other sharp object(s), not elsewhere classified, initial encounter; Z79.899 Other long term (current) drug therapy; Z71.6 Tobacco abuse counseling; Y93.89 Activity, other specified; Y92.89 Other specified places as the place of occurrence of the external cause; Y99.8 Other external cause status
CPT/HCPCS: 70450; 76770; 76870; 80053; 80164; 80307; 81001; 82962; 85025; 87081; 90715; 93971; 99285; G0378; G0480; J1200

== ENCOUNTER → 2023-10-04 | Outpatient (CLI) | payer OTHER ==
[~2023-10-04] MED LIST: AMLO-258 PO; ASPI-1450 PO; ATOR40TA28 PO; DIVA-111 PO; DOCU-412 PO; DULO-114 PO; FAMO20 PO; GABA-1201 PO; HYDR25TA2 PO; HYDR25TA84 PO; LISI-892 PO; METO-391 PO; PRAZ5 PO
[2023-10-04 07:52] LABS: ALANINE AMINOTRANSFERASE 17 U/L (12-78); ALBUMIN 3.4 g/dL (3.4-5.0); ALKALINE PHOSPHATASE 75 U/L (46-116); ANION GAP 8 mmol/L (8-16); ASPARTATE AMINOTRANSFERASE 14 U/L (15-37); BILIRUBIN,TOTAL 0.4 mg/dL (0.1-1.0); CALCIUM, TOTAL 8.3 mg/dL (8.8-10.5); CARBON DIOXIDE 29 mmol/L (22-29); CHLORIDE 98 mmol/L (98-107); CREATININE 0.87 mg/dL (0.60-1.30); GLOMERULAR FILTR. RATE CALC > 60 mL/min (>60); GLUCOSE,RANDOM 88 mg/dL (70-110); POTASSIUM 4.2 mmol/L (3.5-5.1); SODIUM SERUM 135 mmol/L (136-145); TOTAL PROTEIN, SERUM 6.2 g/dL (6.4-8.2); UREA NITROGEN, BLOOD 18 mg/dL (7-18)
== END | disposition home or self-care (01) ==
LOC: LABMN 07:00
PROVIDERS: ATTEND Chiropractor
DX: N18.9 Chronic kidney disease, unspecified (principal)
CPT/HCPCS: 80053